=== PATIENT | male | born 1995 | race Caucasian/White ===

== ENCOUNTER 2020-09-02 17:42 | Emergency (ER) | payer OTHER, SELFPAY ==
--- NOTE | ~2020-09-02 | XR_ITS ---
EXAMINATION: XR chest 2V DATE: 09/02/2020 18:22 INDICATION: Cough TECHNIQUE: PA and lateral views of the chest are obtained. COMPARISON: None available FINDINGS: There are minimal airspace opacities of the right lower lobe There is no pleural effusion o r pneumothorax. The cardiomediastinal silhouette is normal. The visualized bones and soft tissues are unremarkable. IMPRESSION: 1. Minimal right lower lobe airspace opacity, likely pneumonia. Reviewed, dictated and finalized at location A.
[2020-09-02 17:51] VITALS: BP 142/61; PULSE 77; RESP 18; TEMP 37; O2SAT 98
[2020-09-02 18:00] VITALS: BP 142/61; PULSE 77; RESP 18; TEMP 37; O2SAT 98
--- NOTE | 2020-09-02 18:08 | ED.URI ---
HPI - URI/Sore Throat General Chief Complaint: Upper Respiratory Infection Stated Complaint: cough with chest pain Time Seen by Provider: 09/02/20 18:08 Source: patient Mode of arrival: ambulatory Limitations: no limitations History of Present Illness HPI Narrative: Victor Manuel Velez is a 24 yo male with a PMH came in with a 4 day hx of sore throat, congestion, anterior chest wall pain, feels fatigued and poorly. Deep cough. Plan is to flu/strep/chest Xray. possible covid testing Related Data Allergies Allergy/AdvReac Type Severity Reaction Status Date / Time Penicillins Allergy Unknown Rash Verified 09/02/20 18:00 Review of Systems Review of Systems: Narrative: CONSTITUTIONAL: Denies fever, chills, sweats. Is fatigue EYES: Denies visual changes, redness, discharge. ENT: has rhinorrhea, has congestion, has sore throat, otalgia. CARDIOVASCULAR: Denies chest pain, palpitations, edema. RESPIRATORY: Denies dyspnea, wheezing, has cough GASTROINTESTINAL: Denies abdominal pain, nausea, vomiting, diarrhea. GENITOURINARY: Denies dysuria, hematuria, abnormal discharge SKIN: Denies rash or itching. NEUROLOGIC: Denies numbness, or focal weakness. PSYCHIATRIC: Denies anxiety or depression. [facility] Past Medical History Medical History Asthma Family History Family History Other No active medical problems Social History Social History Smoking status: Heavy tobacco smoker Alcohol intake: current Comments At time of signature, I agree with nursing past medical, surgical, social and family history. There is no relevant family history pertinent to the presenting complaint. Exam Narrative: Exam Narrative: GENERAL: This is a well-nourished, well-developed patient, in moderate distress. HEAD: normocephalic, atraumatic. EYES: External ears normal, auditory canals erythema and without drainage, TMs normal without perforation. Hearing grossly intact. NOSE: External nose normal with nasal discharge, nares withredness, has rhinorrhea. THROAT: Mucous membranes moist, posterior pharynx erythema with edema NECK: Neck supple, tender CARDIOVASCULAR: Regular rate and rhythm without murmurs, gallops, or rubs.+chest wall tenderness RESPIRATORY: Diminished to auscultation. Breath sounds equal bilaterally. No wheezes, rales, or rhonchi. GASTROINTESTINAL: Abdomen soft, non-tender, SKIN: warm, intact with no suspicious lesions or rash, good texture and turgor. NEURO: awake, alert, and oriented to person, place and time. There were no obvious focal neurologic abnormalities. Steady gait EXTREMITIES: Normal range of motion. BACK: Nontender without deformity Course Course Emergency Course: presenting with fatigue, upper respiratory symptoms, chest wall tenderness Strep/flu negative; chest Xray Sent for covid test Dexamethasone IM given Started on zithromax , albuterol inhaler, prednisone, codeine cough medicine-explained differential to patient and the need for him to hydrate given excuse to take covid testing tomorrow and wait for the results; patient to rest, hydrate, and isolate Vital Signs Vital signs: Vital Signs Temperature 98.6 F 09/02/20 17:51 Pulse Rate 77 09/02/20 17:51 Respiratory Rate 18 09/02/20 17:51 Blood Pressure 142/61 H 09/02/20 17:51 Pulse Oximetry 98 09/02/20 17:51 Temperature 98.6 F 09/02/20 18:00 Pulse Rate 77 09/02/20 18:00 Respiratory Rate 18 09/02/20 18:00 Blood Pressure 142/61 H 09/02/20 18:00 Pulse Oximetry 98 09/02/20 18:00 MDM - URI/Sore Throat Lab Data Labs: Influenza A Screen Negative Reference Range: Negative Influenza B Screen Negative Reference Range: Negative Strep Screen
== END 2020-09-02 18:48 | disposition home or self-care (01) ==
PROVIDERS: Emergency Provider Nurse Practitioner
DX: J06.9 Acute upper respiratory infection, unspecified (principal); J18.9 Pneumonia, unspecified organism; Z20.828 Contact with and (suspected) exposure to other viral communicable diseases; J45.909 Unspecified asthma, uncomplicated; F17.200 Nicotine dependence, unspecified, uncomplicated
CPT/HCPCS: 71046; 87081; 87804; 87880; 96372; 99213; G0463; J1100

== ENCOUNTER 2020-09-03 10:32 | Outpatient (NON) | payer OTHER, SELFPAY ==
[2020-09-04 03:01] LABS: SARS-CoV-2 RNA PCR Negative
== END 2020-09-03 10:33 ==
PROVIDERS: Visit Provider Nurse Practitioner
DX: Z20.828 Contact with and (suspected) exposure to other viral communicable diseases (principal); Z11.1 Encounter for screening for respiratory tuberculosis
CPT/HCPCS: 87635; C9803; U0003